=== PATIENT | female | born 1950 | race Caucasian/White ===

== ENCOUNTER 2018-07-21 10:08 | Inpatient (IN) | payer MEDICARE ==
[2018-07-21] MEDS: ASPIRIN 81 MG CHEW TABLET PO (11:28)
[2018-07-21 11:32] LABS: BASO % 0.4 % (0.0-1.0); EOS # 0.1 10^3/uL (0.0-0.50); EOS % 0.7 % (0.0-3.0); HEMATOCRIT 43.2 % (36.0-47.0); HEMOGLOBIN 14.3 g/dl (12.0-15.5); IMMATURE GRANULOCYTE % 0.5 % (0-3.0); LYMPH # 1.9 10^3/uL (1.5-4.5); LYMPH % 17.3 % (24.0-44.0); MEAN CORPUSCULAR HEMOGLOBIN 30.7 pg (27.0-33.0); MEAN CORPUSCULAR HGB CONC 33.1 g/dl (32.0-36.5); MEAN CORPUSCULAR VOLUME 92.7 fl (80.0-96.0); MONO # 0.9 10^3/uL (0.0-0.8); MONO % 8.1 % (0.0-5.0); NEUTROPHILS # 7.8 10^3/uL (1.8-7.7); PLATELET COUNT, AUTOMATED 210 10^3/uL (150-450); RED BLOOD COUNT 4.66 10^6/uL (4.00-5.40); RED CELL DISTRIBUTION WIDTH 13.5 % (11.5-14.5); WHITE BLOOD COUNT 10.7 10^3/uL (4.0-10.0)
[2018-07-21 11:38] LABS: ANION GAP 7 MEQ/L (8-16); BLOOD UREA NITROGEN 11 MG/DL (7-18); CALCIUM LEVEL 9.6 MG/DL (8.8-10.2); CARBON DIOXIDE LEVEL 27 MEQ/L (21-32); CHLORIDE LEVEL 106 MEQ/L (98-107); CPK CREATINE PHOSPHOKINASE 47 U/L (26-192); CREATININE FOR GFR 0.98 MG/DL (0.55-1.30); GLOMERULAR FILTRATION RATE > 60.0 (>45); GLUCOSE, FASTING 115 MG/DL (70-100); POTASSIUM SERUM 3.7 MEQ/L (3.5-5.1); SODIUM LEVEL 140 MEQ/L (136-145); TROPONIN I 0.32 NG/ML (< 0.10)
[2018-07-21 11:39] LABS: CK-MB VALUE MASS < 1.0 NG/ML (<3.6); MB/CK RELATIVE INDEX 2.12 (< OR =4); NT-PRO BNP 450 PG/ML (<125)
[2018-07-21 13:02] LABS: PROTHROMBIN TIME 12.2 SECONDS (12.1-14.4)
[2018-07-21 13:08] LABS: PARTIAL THROMBOPLASTIN TIME 26.3 SECONDS (25.4-37.6)
[2018-07-21 13:46] LABS: CPK CREATINE PHOSPHOKINASE 49 U/L (26-192); TROPONIN I 0.37 NG/ML (< 0.10)
[2018-07-21 13:47] LABS: CK-MB VALUE MASS 1.6 NG/ML (<3.6); MB/CK RELATIVE INDEX 3.26 (< OR =4)
[2018-07-21] MEDS ORDERED: ISOVUE-370 76% 100ML VIAL (Q9967) As Ordered (14:12)
[2018-07-21] MEDS: HEPARIN SOD (PORCINE) 5000 UNITS/ML VIAL IV (16:37)
[2018-07-21] MEDS: HEPARIN DRIP 25,000 UNITS in APPROPRIATE DILUENT 1 EA IV (16:41)
[2018-07-21] MEDS ORDERED: HEPARIN DRIP 25,000 UNITS in APPROPRIATE DILUENT 1 EA IV (17:43)
[2018-07-21] MEDS ORDERED: MORPHINE 4 MG/ML 1ML VIAL/SYRINGE (J2270) IV (17:45)
[2018-07-21] MEDS ORDERED: HEPARIN SOD (PORCINE) 5000 UNITS/ML VIAL IV (17:45)
[2018-07-21] MEDS ORDERED: ONDANSETRON 4MG/2ML VIAL (J2405) IV (17:45)
[2018-07-21] MEDS ORDERED: PERCOCET 5MG/325MG TAB PO (17:45)
[2018-07-21] MEDS ORDERED: ONDANSETRON 4 MG TAB (S0181) PO (17:45)
[2018-07-21 18:45] LABS: MEAN CORPUSCULAR HEMOGLOBIN 30.9 pg (27.0-33.0); MEAN CORPUSCULAR HGB CONC 34.1 g/dl (32.0-36.5); MEAN CORPUSCULAR VOLUME 90.5 fl (80.0-96.0); PLATELET COUNT, AUTOMATED 181 10^3/uL (150-450); RED BLOOD COUNT 4.53 10^6/uL (4.00-5.40); RED CELL DISTRIBUTION WIDTH 13.3 % (11.5-14.5); WHITE BLOOD COUNT 9.6 10^3/uL (4.0-10.0)
[2018-07-21] MEDS: CALCIUM CARBONATE 500 MG CHEW U/D PO (18:53)
[2018-07-21 19:10] LABS: CK-MB VALUE MASS 1.9 NG/ML (<3.6); CPK CREATINE PHOSPHOKINASE 50 U/L (26-192)
[2018-07-21 20:47] LABS: PARTIAL THROMBOPLASTIN TIME 125.4 SECONDS (25.4-37.6)
[2018-07-21] MEDS: LATANOPROST 0.005% OPHTH SOLN 2.5 ML OU (21:00)
[2018-07-21] MEDS: OMEPRAZOLE 20 MG CAP PO (21:00)
[2018-07-22 03:39] LABS: BASO % 0.5 % (0.0-1.0); EOS # 0.2 10^3/uL (0.0-0.50); EOS % 2.5 % (0.0-3.0); HEMATOCRIT 37.3 % (36.0-47.0); HEMOGLOBIN 12.5 g/dl (12.0-15.5); IMMATURE GRANULOCYTE % 0.3 % (0-3.0); LYMPH # 2.6 10^3/uL (1.5-4.5); LYMPH % 35.6 % (24.0-44.0); MEAN CORPUSCULAR HEMOGLOBIN 30.7 pg (27.0-33.0); MEAN CORPUSCULAR HGB CONC 33.5 g/dl (32.0-36.5); MEAN CORPUSCULAR VOLUME 91.6 fl (80.0-96.0); MONO # 0.6 10^3/uL (0.0-0.8); MONO % 8.5 % (0.0-5.0); NEUTROPHILS # 3.8 10^3/uL (1.8-7.7); NEUTROPHILS % 52.6 % (36.0-66.0); PLATELET COUNT, AUTOMATED 162 10^3/uL (150-450); RED BLOOD COUNT 4.07 10^6/uL (4.00-5.40); RED CELL DISTRIBUTION WIDTH 13.5 % (11.5-14.5); WHITE BLOOD COUNT 7.3 10^3/uL (4.0-10.0)
[2018-07-22 03:56] LABS: PROTHROMBIN TIME 14.4 SECONDS (12.1-14.4)
[2018-07-22 03:58] LABS: PARTIAL THROMBOPLASTIN TIME 52.8 SECONDS (25.4-37.6)
[2018-07-22 04:04] LABS: ANION GAP 10 MEQ/L (8-16); BLOOD UREA NITROGEN 9 MG/DL (7-18); CALCIUM LEVEL 8.7 MG/DL (8.8-10.2); CARBON DIOXIDE LEVEL 24 MEQ/L (21-32); CHLORIDE LEVEL 108 MEQ/L (98-107); CK-MB VALUE MASS 1.2 NG/ML (<3.6); CPK CREATINE PHOSPHOKINASE 44 U/L (26-192); CREATININE FOR GFR 0.81 MG/DL (0.55-1.30); GLOMERULAR FILTRATION RATE > 60.0 (>45); GLUCOSE, FASTING 118 MG/DL (70-100); MAGNESIUM LEVEL 2.2 MG/DL (1.8-2.4); MB/CK RELATIVE INDEX 2.72 (< OR =4); POTASSIUM SERUM 3.7 MEQ/L (3.5-5.1); SODIUM LEVEL 142 MEQ/L (136-145); TROPONIN I 0.23 NG/ML (< 0.10)
[2018-07-22] MEDS: HEPARIN SOD (PORCINE) 5000 UNITS/ML VIAL IV ×2 (04:28→11:14)
[2018-07-22] MEDS ORDERED: PILL CRUSHER/CUTTER 1 EACH XX (08:15)
[2018-07-22] MEDS: FAMOTIDINE 20 MG TAB PO (09:00)
[2018-07-22 10:51] LABS: PARTIAL THROMBOPLASTIN TIME 63.8 SECONDS (25.4-37.6)
[2018-07-22 11:03] LABS: CK-MB VALUE MASS 1.2 NG/ML (<3.6); CPK CREATINE PHOSPHOKINASE 46 U/L (26-192); TROPONIN I 0.15 NG/ML (< 0.10)
[2018-07-22] MEDS: HEPARIN DRIP 25,000 UNITS in APPROPRIATE DILUENT 1 EA IV (15:07)
[2018-07-22] MEDS: WARFARIN SOD 5 MG TAB PO (17:00)
[2018-07-22 18:02] LABS: PARTIAL THROMBOPLASTIN TIME 87.9 SECONDS (25.4-37.6)
[2018-07-22] MEDS: LATANOPROST 0.005% OPHTH SOLN 2.5 ML OU (20:03)
[2018-07-22] MEDS: OMEPRAZOLE 20 MG CAP PO (20:03)
[2018-07-23 00:19] LABS: PARTIAL THROMBOPLASTIN TIME 83.1 SECONDS (25.4-37.6)
[2018-07-23 06:04] LABS: BASO # 0.1 10^3/uL (0.0-0.2); BASO % 0.8 % (0.0-1.0); EOS # 0.2 10^3/uL (0.0-0.50); EOS % 3.7 % (0.0-3.0); HEMATOCRIT 36.7 % (36.0-47.0); HEMOGLOBIN 12.3 g/dl (12.0-15.5); IMMATURE GRANULOCYTE % 0.2 % (0-3.0); LYMPH # 2.1 10^3/uL (1.5-4.5); LYMPH % 35.2 % (24.0-44.0); MEAN CORPUSCULAR HEMOGLOBIN 30.8 pg (27.0-33.0); MEAN CORPUSCULAR HGB CONC 33.5 g/dl (32.0-36.5); MONO # 0.5 10^3/uL (0.0-0.8); MONO % 8.2 % (0.0-5.0); NEUTROPHILS # 3.1 10^3/uL (1.8-7.7); NEUTROPHILS % 51.9 % (36.0-66.0); PLATELET COUNT, AUTOMATED 178 10^3/uL (150-450); RED BLOOD COUNT 3.99 10^6/uL (4.00-5.40); RED CELL DISTRIBUTION WIDTH 13.4 % (11.5-14.5)
[2018-07-23 06:21] LABS: INR 1.06
[2018-07-23 06:23] LABS: PARTIAL THROMBOPLASTIN TIME 88.4 SECONDS (25.4-37.6)
[2018-07-23 06:29] LABS: ANION GAP 9 MEQ/L (8-16); BLOOD UREA NITROGEN 9 MG/DL (7-18); CARBON DIOXIDE LEVEL 25 MEQ/L (21-32); CHLORIDE LEVEL 109 MEQ/L (98-107); CREATININE FOR GFR 0.86 MG/DL (0.55-1.30); GLOMERULAR FILTRATION RATE > 60.0 (>45); GLUCOSE, FASTING 110 MG/DL (70-100); MAGNESIUM LEVEL 2.2 MG/DL (1.8-2.4); POTASSIUM SERUM 3.7 MEQ/L (3.5-5.1); SODIUM LEVEL 143 MEQ/L (136-145)
[2018-07-23] MEDS: FAMOTIDINE 20 MG TAB PO (08:19)
[2018-07-23] MEDS: HEPARIN DRIP 25,000 UNITS in APPROPRIATE DILUENT 1 EA IV (08:20)
[2018-07-23 09:53] LABS: CARCINOEMBRYONIC ANTIGEN 0.8 NG/ML (<2.5)
[2018-07-23 10:21] LABS: CA 125 6.8 U/ML (<30.2)
[2018-07-23] MEDS: WARFARIN SOD 5 MG TAB PO (17:25)
[2018-07-23] MEDS: OMEPRAZOLE 20 MG CAP PO (20:02)
[2018-07-23] MEDS: LATANOPROST 0.005% OPHTH SOLN 2.5 ML OU (20:02)
[2018-07-24] MEDS: HEPARIN DRIP 25,000 UNITS in APPROPRIATE DILUENT 1 EA IV ×2 (03:36→21:52)
[2018-07-24 05:38] LABS: BASO % 0.8 % (0.0-1.0); EOS # 0.2 10^3/uL (0.0-0.50); EOS % 3.1 % (0.0-3.0); HEMATOCRIT 35.5 % (36.0-47.0); HEMOGLOBIN 11.8 g/dl (12.0-15.5); IMMATURE GRANULOCYTE % 0.4 % (0-3.0); LYMPH % 38.7 % (24.0-44.0); MEAN CORPUSCULAR HEMOGLOBIN 30.6 pg (27.0-33.0); MEAN CORPUSCULAR HGB CONC 33.2 g/dl (32.0-36.5); MEAN CORPUSCULAR VOLUME 92.2 fl (80.0-96.0); MONO # 0.4 10^3/uL (0.0-0.8); MONO % 7.9 % (0.0-5.0); NEUTROPHILS # 2.6 10^3/uL (1.8-7.7); NEUTROPHILS % 49.1 % (36.0-66.0); PLATELET COUNT, AUTOMATED 180 10^3/uL (150-450); RED BLOOD COUNT 3.85 10^6/uL (4.00-5.40); RED CELL DISTRIBUTION WIDTH 13.3 % (11.5-14.5); WHITE BLOOD COUNT 5.2 10^3/uL (4.0-10.0)
[2018-07-24 05:43] LABS: INR 1.29; PROTHROMBIN TIME 16.3 SECONDS (12.1-14.4)
[2018-07-24 05:48] LABS: ANION GAP 9 MEQ/L (8-16); BLOOD UREA NITROGEN 10 MG/DL (7-18); CALCIUM LEVEL 9.4 MG/DL (8.8-10.2); CARBON DIOXIDE LEVEL 25 MEQ/L (21-32); CHLORIDE LEVEL 110 MEQ/L (98-107); CREATININE FOR GFR 0.84 MG/DL (0.55-1.30); GLOMERULAR FILTRATION RATE > 60.0 (>45); GLUCOSE, FASTING 99 MG/DL (70-100); MAGNESIUM LEVEL 2.1 MG/DL (1.8-2.4); POTASSIUM SERUM 3.9 MEQ/L (3.5-5.1); SODIUM LEVEL 144 MEQ/L (136-145)
[2018-07-24 06:00] LABS: PARTIAL THROMBOPLASTIN TIME 111.2 SECONDS (25.4-37.6)
[2018-07-24] MEDS: FAMOTIDINE 20 MG TAB PO (09:08)
[2018-07-24] MEDS ORDERED: MOM 30ML SUSPENSION UDC PO (10:30)
[2018-07-24] MEDS: SENOKOT S TAB PO (11:32)
[2018-07-24 13:14] LABS: PARTIAL THROMBOPLASTIN TIME 97.1 SECONDS (25.4-37.6)
[2018-07-24] MEDS: WARFARIN SOD 7.5 MG TAB PO (16:13)
[2018-07-24 19:10] LABS: PARTIAL THROMBOPLASTIN TIME 93.8 SECONDS (25.4-37.6)
[2018-07-24] MEDS: OMEPRAZOLE 20 MG CAP PO (20:20)
[2018-07-24] MEDS: LATANOPROST 0.005% OPHTH SOLN 2.5 ML OU (20:20)
[2018-07-25 06:36] LABS: BASO % 0.9 % (0.0-1.0); EOS # 0.2 10^3/uL (0.0-0.50); EOS % 3.5 % (0.0-3.0); HEMATOCRIT 35.2 % (36.0-47.0); HEMOGLOBIN 11.8 g/dl (12.0-15.5); IMMATURE GRANULOCYTE % 0.4 % (0-3.0); LYMPH # 1.7 10^3/uL (1.5-4.5); LYMPH % 37.7 % (24.0-44.0); MEAN CORPUSCULAR HEMOGLOBIN 30.8 pg (27.0-33.0); MEAN CORPUSCULAR HGB CONC 33.5 g/dl (32.0-36.5); MEAN CORPUSCULAR VOLUME 91.9 fl (80.0-96.0); MONO # 0.3 10^3/uL (0.0-0.8); MONO % 7.3 % (0.0-5.0); NEUTROPHILS # 2.3 10^3/uL (1.8-7.7); NEUTROPHILS % 50.2 % (36.0-66.0); PLATELET COUNT, AUTOMATED 186 10^3/uL (150-450); RED BLOOD COUNT 3.83 10^6/uL (4.00-5.40); RED CELL DISTRIBUTION WIDTH 13.5 % (11.5-14.5); WHITE BLOOD COUNT 4.5 10^3/uL (4.0-10.0)
[2018-07-25 06:48] LABS: PROTHROMBIN TIME 23.1 SECONDS (12.1-14.4)
[2018-07-25 06:55] LABS: ANION GAP 9 MEQ/L (8-16); BLOOD UREA NITROGEN 11 MG/DL (7-18); CARBON DIOXIDE LEVEL 25 MEQ/L (21-32); CHLORIDE LEVEL 110 MEQ/L (98-107); CREATININE FOR GFR 0.94 MG/DL (0.55-1.30); GLOMERULAR FILTRATION RATE > 60.0 (>45); GLUCOSE, FASTING 100 MG/DL (70-100); SODIUM LEVEL 144 MEQ/L (136-145)
[2018-07-25 07:41] LABS: PARTIAL THROMBOPLASTIN TIME 137.2 SECONDS (25.4-37.6)
[2018-07-25] MEDS: FAMOTIDINE 20 MG TAB PO (08:50)
[2018-07-25] MEDS: SENOKOT S TAB PO (08:50)
[2018-07-25] MEDS: WARFARIN SOD 5 MG TAB PO (16:24)
[2018-07-25] MEDS ORDERED: WARFARIN SOD 5 MG TAB PO (17:00)
[2018-07-25] MEDS: LATANOPROST 0.005% OPHTH SOLN 2.5 ML OU (21:36)
[2018-07-25] MEDS: ACETAMINOPHEN TAB 650MG DOSE (2X325MG) PO (21:37)
[2018-07-25] MEDS: OMEPRAZOLE 20 MG CAP PO (21:37)
[2018-07-25 23:25] LABS: INR 2.57; PROTHROMBIN TIME 28.1 SECONDS (12.1-14.4)
[2018-07-26 05:12] LABS: BASO % 0.9 % (0.0-1.0); EOS # 0.2 10^3/uL (0.0-0.50); EOS % 3.3 % (0.0-3.0); HEMATOCRIT 34.7 % (36.0-47.0); HEMOGLOBIN 11.6 g/dl (12.0-15.5); IMMATURE GRANULOCYTE % 0.2 % (0-3.0); LYMPH # 1.8 10^3/uL (1.5-4.5); LYMPH % 38.6 % (24.0-44.0); MEAN CORPUSCULAR HEMOGLOBIN 30.8 pg (27.0-33.0); MEAN CORPUSCULAR HGB CONC 33.4 g/dl (32.0-36.5); MONO # 0.4 10^3/uL (0.0-0.8); MONO % 8.5 % (0.0-5.0); NEUTROPHILS # 2.2 10^3/uL (1.8-7.7); NEUTROPHILS % 48.5 % (36.0-66.0); PLATELET COUNT, AUTOMATED 170 10^3/uL (150-450); RED BLOOD COUNT 3.77 10^6/uL (4.00-5.40); RED CELL DISTRIBUTION WIDTH 13.4 % (11.5-14.5); WHITE BLOOD COUNT 4.6 10^3/uL (4.0-10.0)
[2018-07-26 05:29] LABS: ANION GAP 7 MEQ/L (8-16); BLOOD UREA NITROGEN 11 MG/DL (7-18); CALCIUM LEVEL 9.2 MG/DL (8.8-10.2); CARBON DIOXIDE LEVEL 27 MEQ/L (21-32); CHLORIDE LEVEL 110 MEQ/L (98-107); CREATININE FOR GFR 0.84 MG/DL (0.55-1.30); GLOMERULAR FILTRATION RATE > 60.0 (>45); GLUCOSE, FASTING 94 MG/DL (70-100); MAGNESIUM LEVEL 2.1 MG/DL (1.8-2.4); POTASSIUM SERUM 3.8 MEQ/L (3.5-5.1); SODIUM LEVEL 144 MEQ/L (136-145)
[2018-07-26 05:30] LABS: INR 2.92; PROTHROMBIN TIME 31.2 SECONDS (12.1-14.4)
[2018-07-26] MEDS: FAMOTIDINE 20 MG TAB PO (10:00)
[2018-07-26 14:12] LABS: PHOSPHOLIPIDS LEVEL 252 mg/dL (150-250)
[2018-07-26 14:12] LABS: ANTI THROMBIN 3 ANTIGEN IMMUNO 101 % (72-124); ANTI THROMBIN 3 FUNCT ACTIVITY 101 % (75-135); CARDIOLIPIN IGA ANTIBODY <9 APL U/mL (0-11); CARDIOLIPIN IGG ANTIBODY <9 GPL U/mL (0-14); CARDIOLIPIN IGM ANTIBODY <9 MPL U/mL (0-12); PROTEIN C FUNCTIONAL ACTIVITY 129 % (73-180); PROTEIN S FUNCTIONAL ACTIVITY 132 % (63-140)
[2018-07-26] MEDS: OMEPRAZOLE 20 MG CAP PO (20:25)
[2018-07-26] MEDS: LATANOPROST 0.005% OPHTH SOLN 2.5 ML OU (20:25)
[2018-07-26 23:40] LABS: INR 3.17; PROTHROMBIN TIME 33.2 SECONDS (12.1-14.4)
[2018-07-27 05:50] LABS: BASO % 0.6 % (0.0-1.0); EOS # 0.1 10^3/uL (0.0-0.50); EOS % 2.5 % (0.0-3.0); HEMATOCRIT 35.3 % (36.0-47.0); HEMOGLOBIN 11.8 g/dl (12.0-15.5); IMMATURE GRANULOCYTE % 0.2 % (0-3.0); LYMPH # 1.8 10^3/uL (1.5-4.5); LYMPH % 35.4 % (24.0-44.0); MEAN CORPUSCULAR HEMOGLOBIN 30.9 pg (27.0-33.0); MEAN CORPUSCULAR HGB CONC 33.4 g/dl (32.0-36.5); MEAN CORPUSCULAR VOLUME 92.4 fl (80.0-96.0); MONO # 0.4 10^3/uL (0.0-0.8); MONO % 8.1 % (0.0-5.0); NEUTROPHILS # 2.8 10^3/uL (1.8-7.7); NEUTROPHILS % 53.2 % (36.0-66.0); PLATELET COUNT, AUTOMATED 196 10^3/uL (150-450); RED BLOOD COUNT 3.82 10^6/uL (4.00-5.40); RED CELL DISTRIBUTION WIDTH 13.4 % (11.5-14.5); WHITE BLOOD COUNT 5.2 10^3/uL (4.0-10.0)
[2018-07-27 06:04] LABS: INR 2.91; PROTHROMBIN TIME 31.1 SECONDS (12.1-14.4)
[2018-07-27 06:16] LABS: ANION GAP 7 MEQ/L (8-16); BLOOD UREA NITROGEN 12 MG/DL (7-18); CALCIUM LEVEL 8.8 MG/DL (8.8-10.2); CARBON DIOXIDE LEVEL 25 MEQ/L (21-32); CHLORIDE LEVEL 108 MEQ/L (98-107); CREATININE FOR GFR 0.83 MG/DL (0.55-1.30); GLOMERULAR FILTRATION RATE > 60.0 (>45); GLUCOSE, FASTING 101 MG/DL (70-100); POTASSIUM SERUM 4.2 MEQ/L (3.5-5.1); SODIUM LEVEL 140 MEQ/L (136-145)
[2018-07-27] MEDS: FAMOTIDINE 20 MG TAB PO (09:38)
[2018-07-27 11:36] LABS: DRVV SCREEN 25.5 SEC
[2018-07-27 12:07] LABS: PTT LUPUS TYPE ANTICOAG SCREEN 0.6 (0-1.2)
== END 2018-07-27 13:33 | disposition home or self-care (01) | DRG 299 ==
LOC: M ED 10:08 → M ED INP 17:43 → M PCU 19:45
DX: I82.411 Acute embolism and thrombosis of right femoral vein (principal); I26.99 Other pulmonary embolism without acute cor pulmonale; K21.9 Gastro-esophageal reflux disease without esophagitis; I27.20 Pulmonary hypertension, unspecified; K59.00 Constipation, unspecified; Z87.442 Personal history of urinary calculi; Z90.49 Acquired absence of other specified parts of digestive tract; Z98.49 Cataract extraction status, unspecified eye; Z87.891 Personal history of nicotine dependence; Z79.899 Other long term (current) drug therapy

== ENCOUNTER → 2024-05-24 | Outpatient (CLI) | payer MEDICARE ==
[~2024-05-24] MED LIST: ADVI1CAP2 PO; COUM1TAB19 PO; LATA0.0013 OU; OMEP40CA4 PO; PEPC10TA6 PO; TUMS500C PO
== END ==
LOC: M RAD 14:42
PROVIDERS: ATTEND Ophthalmology
DX: H53.9 Unspecified visual disturbance (principal)